=== PATIENT | female | born 1985 | race African-American/Black ===

== ENCOUNTER 2017-04-03 16:15 | Emergency (ER) | payer OTHER ==
[~2017-04-03] VITALS: Ht 157.5 cm; Wt 77.1 kg
[2017-04-03 16:21] VITALS: BP 148/96
[2017-04-03] MEDS ORDERED: NAPROXEN 500 MG TABLET PO STA (16:29)
[2017-04-03] MEDS ORDERED: HYDROcodone/APAP 5/325MG 1 TAB TABLET PO ONE (17:00)
[2017-04-03] MEDS ORDERED: IBUP-1060 PO (17:06)
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
--- NOTE | 2017-04-03 17:22 | RAD ---
Indication injury 2 days previously. Persistent pain. AP oblique and lateral views of the right foot were obtained. No bony abnormality is seen
== END 2017-04-03 17:13 | disposition home or self-care (01) ==
LOC: ER 16:15
DX: S93.601A Unspecified sprain of right foot, initial encounter (principal); F10.10 Alcohol abuse, uncomplicated; X58.XXXA Exposure to other specified factors, initial encounter; Y93.89 Activity, other specified; Y99.8 Other external cause status; Y92.89 Other specified places as the place of occurrence of the external cause
CPT/HCPCS: 73630; 99284